=== PATIENT | male | born 1955 | race Caucasian/White ===

== ENCOUNTER 2020-09-18 16:30 | Outpatient (CLI) | payer MEDICARE, OTHER | END 2020-09-18 23:59 | disposition home or self-care (01) | LOC: RAD 16:30 | PROVIDERS: ATTEND Family Medicine | DX: R91.8 Other nonspecific abnormal finding of lung field (principal); R06.02 Shortness of breath; R05 Cough | CPT/HCPCS: 71046 ==

== ENCOUNTER 2024-05-27 06:45 | Day surgery (SDC) | payer BC, MEDICARE ==
[2024-05-27] VITALS (8 sets, daily range): BP systolic 101–148; BP diastolic 63–85; PULSE 59–61; RESP 9–14; TEMP 98.2; O2SAT 95–98
[~2024-05-27] VITALS: Ht 167.6 cm; Wt 75.8 kg
[2024-05-27] MEDS ORDERED: TRAM50TA2 PO (07:47)
[2024-05-27] MEDS ORDERED: ATOR20TA66 PO (07:47)
[2024-05-27] MEDS ORDERED: CHOL50004 PO (07:47)
[2024-05-27] MEDS ORDERED: ENTA200T5 PO (07:47)
[2024-05-27] MEDS ORDERED: CARB1CAP7 PO (07:47)
[2024-05-27] MEDS ORDERED: ALBU90AE INH (07:47)
[2024-05-27] MEDS ORDERED: PANT40TA54 PO (07:47)
[2024-05-27] MEDS ORDERED: MIRA50TA PO (07:47)
[2024-05-27] MEDS ORDERED: DONE-46 PO (07:47)
[2024-05-27] MEDS ORDERED: DOCU-148 PO (07:47)
[2024-05-27] MEDS ORDERED: MELA5TAB12 PO (07:47)
[2024-05-27] MEDS ORDERED: ASPI-611 PO (07:47)
[2024-05-27] MEDS ORDERED: QUET25TA36 PO (07:47)
[2024-05-27] MEDS ORDERED: GABA300T28 PO (07:47)
[2024-05-27 07:54] LABS: BASOPHILS # (AUTO) 0.1 X10'3 (0-0.2); BASOPHILS % (AUTO) 0.6 % (0-1); EOSINOPHILS # (AUTO) 0.1 X10'3 (0-0.9); EOSINOPHILS % (AUTO) 1.7 % (0-6); HEMATOCRIT 38.3 % (42.0-52.0); HEMOGLOBIN 13.3 g/dl (14.0-17.9); LYMPHOCYTES # (AUTO) 1.6 X10'3 (1.1-4.8); LYMPHOCYTES % (AUTO) 18.7 % (21-51); MEAN CORPUSCULAR HEMOGLOBIN 32.1 PG (27.0-31.0); MEAN CORPUSCULAR HGB CONC 34.7 g/dL (33.0-36.5); MEAN CORPUSCULAR VOLUME 92.6 FL (78-98); MEAN PLATELET VOLUME 8.1 FL (7.4-10.4); MONOCYTES # (AUTO) 0.9 X10'3 (0-0.9); MONOCYTES % (AUTO) 10.5 % (2-12); NEUTROPHILS # (AUTO) 5.8 X10'3 (1.8-7.7); NEUTROPHILS % (AUTO) 68.5 % (42-75); PLATELET COUNT 222 X10'3 (140-440); RED BLOOD COUNT 4.14 X10'6 (4.70-6.10); RED CELL DISTRIBUTION WIDTH 13.4 % (11.5-14.5); WHITE BLOOD COUNT 8.4 X10'3 (4.5-11.0)
[2024-05-27 08:05] LABS: PROTHROMBIN TIME 10.6 SECONDS (9.0-12.0)
[2024-05-27 08:16] LABS: ANION GAP 7 (8-16); BLOOD UREA NITROGEN 23 MG/DL (7-18); BUN/CREATININE RATIO 25.3 (10.0-20.0); CHLORIDE 103 MMOL/L (99-107); CREATININE 0.91 MG/DL (0.60-1.10); GLUCOSE 84 MG/DL (70-104); MAGNESIUM 1.8 MG/DL (1.5-2.4); POTASSIUM 4.1 MMOL/L (3.5-5.1); SODIUM 139 MMOL/L (135-145); TOTAL CARBON DIOXIDE 28.6 MMOL/L (24-32); eCRCL 72 ML/MIN; eGFR 83 ML/MIN
[2024-05-27 08:17] LABS: ALBUMIN 3.6 G/DL (3.4-5.0)
[2024-05-27] MEDS: VANCOMYCIN 1,500MG in normal saline IV soln 300 ML IV ONE (08:29)
[2024-05-27] MEDS: normal saline 1000ml 1,000 ML IV SCH (08:30)
[2024-05-27] MEDS ORDERED: LIDOcaine 1% W/epiNEPHrine 1:100,000 20ml vial ONE (08:36)
[2024-05-27] MEDS ORDERED: fentaNYL/PF 50MCG/1 ML 2ML syringe ONE (08:36)
[2024-05-27] MEDS ORDERED: iohexol 350 MG/ML 50ML vial IV ONE (08:36)
[2024-05-27] MEDS ORDERED: vancomycin 1,000mg inj ONE (08:36)
[2024-05-27] MEDS ORDERED: midazolam 1 mg/ML 2ml injection ONE ×2 (08:36→08:40)
[2024-05-27] MEDS: clindamycin-Cleocin 900mg/D5W 50 ML IV ONE (10:57)
[2024-05-27] MEDS ORDERED: normal saline 1,000 ML IV SCH (11:05)
== END 2024-05-27 13:08 | disposition home or self-care (01) ==
LOC: SSTAY O 06:45
PROVIDERS: ATTEND Internal Medicine Cardiovascular Disease
DX: I49.5 Sick sinus syndrome (principal); R55 Syncope and collapse; I44.4 Left anterior fascicular block; I51.7 Cardiomegaly; E78.00 Pure hypercholesterolemia, unspecified; Z86.73 Personal history of transient ischemic attack (TIA), and cerebral infarction without residual deficits; Z79.899 Other long term (current) drug therapy; Z90.49 Acquired absence of other specified parts of digestive tract; Z98.890 Other specified postprocedural states; Z88.0 Allergy status to penicillin; Z88.5 Allergy status to narcotic agent; Z80.9 Family history of malignant neoplasm, unspecified
CPT/HCPCS: 33208; 36415; 71045; 80048; 83735; 85025; 85610; 93005; 99152; 99153; C1785; C1898; J2250; J3010; J3370; J3490; J7030; J7040; Q9967; A4565

== ENCOUNTER 2025-03-21 12:27 | Emergency (ER) | payer MEDICARE ==
[~2025-03-21] VITALS: Ht 167.6 cm; Wt 77.2 kg
[~2025-03-21 12:27] MED LIST: ALBU90AE INH; ASPI-611 PO; ATOR20TA66 PO; CARB1CAP7 PO; CHOL50004 PO; DOCU-148 PO; DONE-46 PO; ENTA200T5 PO; GABA300T28 PO; MELA5TAB12 PO; MIRA50TA PO; PANT40TA54 PO; QUET25TA36 PO; TRAM50TA2 PO
[2025-03-21 12:41] VITALS: BP 138/78; PULSE 69; RESP 18; O2SAT 98
[2025-03-21] MEDS: LIDOcaine 1% 30ml preserv. free vial IJ STA (14:35)
--- NOTE | 2025-03-21 16:24 | Physician Documentation ---
History of Present Illness ~ Chief Complaint: Laceration Stated Complaint: LAC LT HAND Time Seen by MD: 12:46 HPI Patient is seen today with complaints of laceration to his left thumb on the flexor surface just distal to the A1 abdon. Patient denies any motor deficits. He states he went to urgent care yesterday but was told to come here due to possible tendon involvement. Patient denies any fevers or chills and states he washed the wound and cleansed it for 30 minutes with water and hydrogen peroxide yesterday. Patient has no other concern or complaint at this time. Medication Reconciliation Allergies: Coded Allergies: Penicillins (Verified Allergy, Unknown, 03/21/25) acetaminophen (Verified Allergy, Unknown, 03/21/25) hydrocodone (Verified Allergy, Unknown, 03/21/25) morphine (Verified Allergy, Unknown, 03/21/25) Scheduled Aspirin (Aspir 81), 1 TAB PO DAILY, (Reported) Atorvastatin Calcium (Atorvastatin Calcium), 1 TAB PO DAILY, (Reported) Carbidopa/Levodopa (Rytary ER 61.25 mg-245 mg Cap), 1 TAB PO TID, (Reported) Cholecalciferol (Vitamin D3) (Vitamin D3), 1 CAP PO DAILY, (Reported) Docusate Sodium (Colace), 3 CAP PO HS, (Reported) Donepezil Hcl (Donepezil Hcl), 1 TAB PO DAILY, (Reported) Entacapone (Entacapone), 1 TAB PO QID, (Reported) Gabapentin (Gabapentin ER), 1 TAB PO HS, (Reported) Melatonin (Melatonin), 2 TAB PO HS, (Reported) Mirabegron (Mirabegron ER), 1 TAB PO DAILY, (Reported) Pantoprazole Sodium (Pantoprazole Sodium), 1 TAB PO DAILY, (Reported) Quetiapine Fumarate (Quetiapine Fumarate), 1 TAB PO HS, (Reported) Scheduled PRN Albuterol Sulfate (Proair Respiclick), 2 PUFFS INH Q6H PRN PRN for shortness of breath, (Reported) Tramadol Hcl (Tramadol Hcl), 1 TAB PO BID PRN for pain, (Reported) Review of Systems Constitutional: Denies: chills, fever, weakness Eyes: Denies: pain, blurred vision ENT: Denies: ear pain, nose pain, throat pain, mouth pain Respiratory: Denies: cough, shortness of breath Cardiovascular: Denies: chest pain, palpitations Gastrointestinal: Denies: abdominal pain, nausea, vomiting Genitourinary: Denies: burning, dysuria Male Genitalia: Denies: penile discharge, testicular pain Neurological: Denies: headache, dizziness Musculoskeletal: Denies: pain, swelling Integumentary: Denies: rash, lesions Allergic/Immunologic: Denies: hives, itching Hematologic/Lymphatic: Denies: no symptoms reported Psychiatric: Denies: depression, anxiety Physical Exam Vital Signs: Temperature: 97.6, Source: Temporal, Heart Rate: 69, Respiratory Rate: 18, BP: 138/78, Pulse Oximetry: 98, Weight: 77.250 Physical Exam General: Awake and Alert, no acute distress. HEENT: Conjunctiva pink, Sclera clear, Mucus Membranes moist. Neck: Supple without masses and tenderness. Resp: Unlabored. Lungs clear to auscultation bilaterally. Heart: Regular Rate and rhythm, normal S1 and S2 without murmur, rub or gallop. Musculoskeletal: Patient on exam does have active flexion full strength of the left thumb and extension. Patient is neurovascularly intact distally. Motor function is intact distally. Patient does have a 2-1/2 cm laceration on the flexor aspect of the left thumb just distal to the A1 abdon area. There is no purulence or drainage or induration or erythema or sign of active infection currently. Extremities: No cyanosis,clubbing or edema. Skin: Warm and Dry. Procedures Laceration/Wound Repair Laceration : Procedure Note Procedure note: 5 cc of 1% lidocaine without epinephrine was used to achieve local anesthesia of the 2.5 cm laceration of the left thumb on the flexor surface. Patient tolerated well. Wound was irrigated copiously with iodine and normal saline. 4-0 Prolene with four horizontal mattress sutures was used to achieve closure of the wound. Wound was dressed with nonstick dressing and patient tolerated well. Progress Results/Orders Results/Orders Completed Orders - DAVE RODRIGUEZ PAC Lidocaine 1% 30ml Vial (Xylocaine 1% Via (03/21/25 14:00) Vital Signs 03/21/25 12:41 Temp 97.6 Pulse 69 Resp 18 B/P (MAP) 138/78 Pulse Ox 98 Medical Decision Making Findings Patient is seen today with complaints of laceration to his left thumb on the flexor surface just distal to the A1 abdon. Patient denies any motor deficits. He states he went to urgent care yesterday but was told to come here due to possible tendon involvement. Patient denies any fevers or chills and states he washed the wound and cleansed it for 30 minutes with water and hydrogen peroxide yesterday. Patient has no other concern or complaint at this time. Wound to left thumb was sutured today by myself using four horizontal mattress sutures with 4-0 Prolene. Patient tolerated well. Sutures will need to be removed in 7-10 days. Patient will follow up with primary care or return to the ED for removal. Patient started on prophylactic dose of doxycycline given the amount of time since the injury which was almost 30 hours ago now. Patient given dose of doxycycline in the ED tonight and a script for doxycycline 100 mg one tab twice a day for three days sent to patient pharmacy. Patient will return to ED with any worsening, concerning or changing symptoms. Departure Disposition: 01 HOME / SELF CARE / HOMELESS Impression: Primary Impression: Laceration Condition: Improved Discharge Instructions: Laceration Care, Adult, [id number] Additional Instructions: Wound to left thumb was sutured today by myself using four horizontal mattress sutures with 4-0 Prolene. Patient tolerated well. Sutures will need to be removed in 7-10 days. Patient will follow up with primary care or return to the ED for removal. Patient started on prophylactic dose of doxycycline given the a mount of time since the injury which was almost 30 hours ago now. Patient given dose of doxycycline in the ED tonight and a script for doxycycline 100 mg one tab twice a day for three days sent to patient pharmacy. Patient will return to ED with any worsening, concerning or changing symptoms. Referrals: NO PRIMARY CARE PROVIDER (PCP) Prescriptions Doxycycline Hyclate (Doxycycline Hyclate) 100 Mg Capsule 1 CAP PO Q12H for 3 Days, #6 CAP Prov: DAVE RODRIGUEZ 03/21/25 Signature Scribe Signature: No scribe Attestation: No scribe DAVE RODRIGUEZ Mar 21, 2025 16:23
[2025-03-21] MEDS ORDERED: DOXY-224 PO (16:26)
[2025-03-21] MEDS: DOXYCYCLINE 100MG CAPSULE PO STA (16:40)
[2025-03-21 16:49] VITALS: TEMP 97.6
== END 2025-03-21 16:50 | disposition home or self-care (01) ==
LOC: ER 12:27
DX: S61.012A Laceration without foreign body of left thumb without damage to nail, initial encounter (principal); Z88.0 Allergy status to penicillin; Z88.5 Allergy status to narcotic agent; Z79.82 Long term (current) use of aspirin; Z88.8 Allergy status to other drugs, medicaments and biological substances; X58.XXXA Exposure to other specified factors, initial encounter; Y93.89 Activity, other specified; Y92.89 Other specified places as the place of occurrence of the external cause; Y99.8 Other external cause status
CPT/HCPCS: 12001; 99283; A6222; A6449; J7030